=== PATIENT | female | born 1970 | race Caucasian/White ===

== ENCOUNTER 2016-10-19 15:00 | Outpatient (RCR) | payer BC ==
[~2016-10-19 15:00] MED LIST: ALORA0.1 MG/24; ANTIVERT 25MG25 MG PO; PHENERGAN 25 TA25 MG PO; VALIUM 5MG T5 MG/TAB PO; ZOFRAN ODT4 MG PO
== END 2016-12-14 ==
LOC: WSOT
DX: M20.012 Mallet finger of left finger(s) (principal)

== ENCOUNTER → 2017-05-10 | Outpatient (CLI) | payer BC | LOC: COL.RAD 13:42 | DX: R07.1 Chest pain on breathing (principal) | CPT/HCPCS: Q9967 ==

== ENCOUNTER → 2017-05-21 | Outpatient (CLI) | payer BC | LOC: MC.RAD 05-13 14:20 | DX: Z12.31 Encounter for screening mammogram for malignant neoplasm of breast (principal) ==

== ENCOUNTER → 2018-08-18 | Outpatient (CLI) | payer BC | LOC: MC.RAD 15:14 | DX: Z12.31 Encounter for screening mammogram for malignant neoplasm of breast (principal) ==

== ENCOUNTER → 2019-08-28 | Outpatient (CLI) | payer BC | LOC: MC.RAD 13:13 | DX: Z12.31 Encounter for screening mammogram for malignant neoplasm of breast (principal) ==

== ENCOUNTER → 2019-09-13 | Outpatient (CLI) | payer BC | LOC: COL.CARD 13:34 | DX: I49.3 Ventricular premature depolarization (principal) ==

== ENCOUNTER → 2019-10-06 | Outpatient (CLI) | payer BC ==
[~2019-10-06] VITALS: Ht 167.7 cm; Wt 82.0 kg
[~2019-10-06] MED LIST changes: +TOPROL XL 50MG50 MG PO
[2019-10-06 10:54] VITALS: BP 132/84; PULSE 55
== END ==
LOC: COL.CARD 10:31
DX: I49.3 Ventricular premature depolarization (principal)
CPT/HCPCS: A9500

== ENCOUNTER 2019-11-06 08:04 | Inpatient (IN) | payer BC ==
[~2019-11-06] VITALS: Ht 170.2 cm; Wt 79.3 kg
[2019-11-08 08:58] VITALS: BP 124/73; PULSE 48; TEMP 98.1
[2019-11-08 09:37] LABS: ALBUMIN 4.2 gm/dL (3.5-5.0); BILIRUBIN,TOTAL 0.7 mg/dL (0.0-1.0); CALCIUM 9.5 mg/dL (8.4-10.2); CREATININE, serum 0.96 (0.52-1.25); MAGNESIUM 2.2 mg/dL (1.6-2.3); POTASSIUM 4.5 mmol/L (3.4-5.0); TOTAL PROTEIN 7.1 gm/dL (6.4-8.2)
[2019-11-08 09:45] LABS: BASO # 0.1 (0.0-0.2); BASO % 1.3 % (0.0-2.0); EOS # 0.3 (0.0-0.7); EOS % 5.6 % (0-4.0); GRAN # 2.5 (1.4-6.5); GRAN % 52.3 % (42.2-75.2); HEMATOCRIT 37.8 % (37.0-47.0); HEMOGLOBIN 12.5 g/dl (12.5-16.0); LYMPH # 1.6 (1.2-3.4); LYMPH % 32.3 % (20.0-51.0); MEAN CELL VOLUME 88 fl (80.0-100.0); MEAN CORPUSCULAR HEMOGLOBIN 29 pg (27.0-31.0); MEAN CORPUSCULAR HGB CONC 33 g/dl (33.0-37.0); MONO # 0.4 (0.1-0.6); MONO % 8.1 % (1.7-9.3); PLATELET COUNT 203 K/mm3 (130-400); RED BLOOD COUNT 4.29 M/mm3 (4.10-5.30); REDCELL DISTRIBUTION WIDTH-CV 12.1 % (11.5-14.5)
[2019-11-08 09:50] LABS: INR 1.1 (0.8-3.0); PROTHROMBIN TIME 11.9 SECONDS (9.7-12.8)
[2019-11-08 11:48] VITALS: BP 131/79; PULSE 43; TEMP 984
--- NOTE | 2019-11-08 12:50 | NUR ---
RECEIVED CALL FROM TELEMETRY REGARDING HEART RATE BEING UPPER 30s TO LOW 40s. PAGED ETTA WITH DR. BURGOS FOR PARAMETERS. CALL PLACED AT 1212. RECEIVED RETURN CALL AT 1245.
[2019-11-08 15:56] VITALS: BP 105/59; PULSE 50; TEMP 98.2
--- NOTE | 2019-11-08 18:18 | NUR ---
PATIENT IS SITTING UP IN BED, NO NEEDS IDENTIFIED.
--- NOTE | 2019-11-08 19:20 | NUR ---
Received report from Becka. Seen patient awake, lying in bed. She just finished eating her dinner. Denies pain. She is alert, oriented and independent. With INT on left wrist.
[2019-11-08 19:24] VITALS: BP 108/71; PULSE 43; TEMP 98
[2019-11-08 23:19] VITALS: BP 107/71; PULSE 42; TEMP 97.7
[2019-11-09] VITALS (7 sets, daily range): BP systolic 99–128; BP diastolic 55–77; PULSE 40–48; TEMP 97.4–98.2
--- NOTE | 2019-11-09 01:20 | NUR ---
Tele nurse called that patient's heart rate is at 39bpm. SENIOR ACCOUNTING SPECIALIST checked on her blood pressure 99/65 and heart rate of 42. Upon checking on physician notification order, it says to notify if heart rate is 30 and below. Patient was asleep during the heart rate of 39. No complains of pain. Will continue to monitor.
[2019-11-09 06:34] LABS: BASO # 0.1 (0.0-0.2); EOS # 0.2 (0.0-0.7); EOS % 4.4 % (0-4.0); GRAN # 2.5 (1.4-6.5); GRAN % 50.7 % (42.2-75.2); HEMATOCRIT 39.1 % (37.0-47.0); HEMOGLOBIN 12.8 g/dl (12.5-16.0); LYMPH # 1.8 (1.2-3.4); LYMPH % 36.5 % (20.0-51.0); MEAN CELL VOLUME 88 fl (80.0-100.0); MEAN CORPUSCULAR HEMOGLOBIN 29 pg (27.0-31.0); MEAN CORPUSCULAR HGB CONC 33 g/dl (33.0-37.0); MEAN PLATELET VOLUME 10.8 fl (7.4-10.4); MONO # 0.4 (0.1-0.6); MONO % 7.2 % (1.7-9.3); PLATELET COUNT 210 K/mm3 (130-400); RED BLOOD COUNT 4.45 M/mm3 (4.10-5.30)
[2019-11-09 06:48] LABS: CALCIUM 9.4 mg/dL (8.4-10.2); CREATININE, serum 0.9 (0.52-1.25); MAGNESIUM 2.3 mg/dL (1.6-2.3); POTASSIUM 4.8 mmol/L (3.4-5.0)
--- NOTE | 2019-11-09 07:11 | NUR ---
Patient had uneventful night. Denies any pain. Will endorse to day fit nurse.
--- NOTE | 2019-11-09 11:33 | NUR ---
PATIENT IS AWAKE AND ALERT IN ROOM, DENIES PAIN. STATED SHE DID NOT FEEL THE ABNORMAL HEART BEATS LIKE SHE HAD PRIOR TO STARTING THE SOTALOL. NO NEEDS IDENTIFIED. IS INDEPENDENT IN THE ROOM.
--- NOTE | 2019-11-09 11:43 | NUR ---
BOAZ met with the patient to discuss discharge plan. The patient lives in [place] with her , Mundo (ph#[phone]), and youngest son. She reports independence with ADLs and does not have any DME. The patient's PCP is Dr. Lorna Kaiser and she receives her medications at [facility]. She reports no difficulties obtaining her meds. The patient does not have advanced directives completed, but she was interested in obtaining a form for DPOA-HC. BOAZ provided. The patient plans to return home with her family upon discharge. No additional needs at this time.
--- NOTE | 2019-11-09 12:47 | NUR ---
First visit from the engineer design and construction. No needs right now.
--- NOTE | 2019-11-09 18:23 | NUR ---
PATIENT IS SITTING UP IN BED, HAS EVENING MEAL. DENIES ANY NEEDS.
[2019-11-10 03:34] VITALS: BP 108/65; PULSE 46; TEMP 97.4
--- NOTE | 2019-11-10 05:07 | NUR ---
PATIENT HAS SLEPT THROUGH THE NIGHT WITH NO COMPLAINTS. PATIENT WATCHED SOME [employer] SERIES ON HER PHONE BEFORE WATCHING THE TV. PATIENT HAS SLEPT THROUGH THE NIGHT WITH NO COMPLAINTS OF PALPITATIONS. WILL CONTINUE TO MONITOR HER. WILL REPORT OFF TO DAY SHIFT.
--- NOTE | 2019-11-10 07:00 | NUR ---
Bedside shift report received from KHLOE Han. PT in bed resting, denies needs, will continue to monitor.
[2019-11-10 07:06] LABS: BASO # 0.1 (0.0-0.2); BASO % 0.9 % (0.0-2.0); EOS # 0.2 (0.0-0.7); EOS % 4.4 % (0-4.0); GRAN # 3.2 (1.4-6.5); HEMATOCRIT 41.2 % (37.0-47.0); HEMOGLOBIN 13.6 g/dl (12.5-16.0); LYMPH # 1.6 (1.2-3.4); LYMPH % 28.6 % (20.0-51.0); MEAN CELL VOLUME 88 fl (80.0-100.0); MEAN CORPUSCULAR HEMOGLOBIN 29 pg (27.0-31.0); MEAN CORPUSCULAR HGB CONC 33 g/dl (33.0-37.0); MEAN PLATELET VOLUME 10.7 fl (7.4-10.4); MONO # 0.4 (0.1-0.6); MONO % 6.9 % (1.7-9.3); PLATELET COUNT 219 K/mm3 (130-400); RED BLOOD COUNT 4.71 M/mm3 (4.10-5.30); REDCELL DISTRIBUTION WIDTH-CV 11.9 % (11.5-14.5)
[2019-11-10 07:15] LABS: CALCIUM 9.6 mg/dL (8.4-10.2); CREATININE, serum 0.88 (0.52-1.25); MAGNESIUM 2.2 mg/dL (1.6-2.3); POTASSIUM 4.5 mmol/L (3.4-5.0)
[2019-11-10 07:20] VITALS: BP 119/78; PULSE 51; TEMP 97.7
--- NOTE | 2019-11-10 09:54 | NUR ---
Assessment charted. Pt has sore neck from wearing tele monitor around neck, disucssed options to remove from neck, wear like a purse when up and keep off in bed when not up an around. Warm pack provided for neck. Disucssed ablility to walk halls today if desired. INT to LW. Will continue to monitor.
[2019-11-10 11:03] VITALS: BP 114/70; PULSE 72; TEMP 97.7
[2019-11-10] MEDS ORDERED: BETAPACE 80MG80 MG PO (11:26)
--- NOTE | 2019-11-10 12:00 | NUR ---
DIscharge teaching completed at this time. INT dc'd, tip intact. Reviewed packet, f/u appt, script. Pt left with all belongings, escorted out by myself, to drive home, criteria met.
== END 2019-11-10 12:00 | disposition home or self-care (01) | DRG 310 ==
LOC: MEDICAL 11-08 08:03
PROVIDERS: ADMIT Internal Medicine Cardiovascular Disease
DX: I47.1 Supraventricular tachycardia (principal); I49.3 Ventricular premature depolarization

== ENCOUNTER → 2020-09-05 | Outpatient (CLI) | payer BC ==
[~2020-09-05] MED LIST changes: +BETAPACE 80MG80 MG PO
== END ==
LOC: MC.RAD 16:33
DX: Z12.31 Encounter for screening mammogram for malignant neoplasm of breast (principal); Z97.8 Presence of other specified devices

== ENCOUNTER 2021-08-22 06:14 | Day surgery (SDC) | payer BC ==
[~2021-08-22] VITALS: Ht 170.2 cm; Wt 84.0 kg
[2021-08-22 07:55] VITALS: BP 121/88; PULSE 59; TEMP 97
--- NOTE | 2021-08-22 07:55 | NUR ---
Pt arrived from procedure and was settled by Balbina LEDBETTER. Verbal report then obtained. Pt requested crackers and applejuice to drink. Call wild is within reach on side table. Visitor is present. Pt denies nausea.
[2021-08-22 08:10] VITALS: BP 122/58; PULSE 63
--- NOTE | 2021-08-22 08:10 | NUR ---
Vitals obtained. Pt has finished her crackers and continues to deny nausea. Pt expressed desire to be discharged. Call wild remains within reach.
[2021-08-22 08:25] VITALS: BP 113/76; BP 120/96; PULSE 59; PULSE 67
--- NOTE | 2021-08-22 08:25 | NUR ---
Vitals obtained. Andrew romo.
--- NOTE | 2021-08-22 08:35 | NUR ---
Dc instructions and educational material reviewed with the pt and his visitor, both verbalized understanding and the pt signed the related paperwork. Pt denied having questions or concerns. Pt denied needing assistance changing. IV discontinued. Catheter tip intact. Pressure bandage applied. No redness or swelling noted. Call wild remains within reach if needed.
--- NOTE | 2021-08-22 09:05 | NUR ---
Pt dismissed from endo via wheelchair to the pt entrence by Sarahi LEDBETTER. Pt has DC packet and persoanl belongings. Pt was transferred into the care of her , who is present to drive.
[2021-08-22 12:23] VITALS: BP 135/84; PULSE 69; TEMP 98
== END 2021-08-22 09:05 | disposition home or self-care (01) ==
LOC: SDCO 06:14
DX: K22.2 Esophageal obstruction (principal); R93.89 Abnormal findings on diagnostic imaging of other specified body structures; R13.10 Dysphagia, unspecified; K29.70 Gastritis, unspecified, without bleeding
CPT/HCPCS: J0330; J2704; J7120

== ENCOUNTER → 2021-09-18 | Outpatient (CLI) | payer BC | LOC: MC.RAD 13:22 | DX: Z12.31 Encounter for screening mammogram for malignant neoplasm of breast (principal) ==

== ENCOUNTER → 2023-01-05 | Outpatient (CLI) | payer BC | LOC: COL.RAD 11:57 | DX: M54.14 Radiculopathy, thoracic region (principal) ==

== ENCOUNTER → 2023-07-22 | Outpatient (CLI) | payer BC ==
[~2023-07-22] MED LIST changes: +Albuterol 0.083% Neb Soln 2.5 MG/3 ML UD IH ONE; +Iohexol 300 - 100 ML VIAL IV ONE; +NS 100 ML IV SCH
== END ==
LOC: COL.RAD 13:45
DX: R91.8 Other nonspecific abnormal finding of lung field (principal)
CPT/HCPCS: Q9967

== ENCOUNTER → 2023-08-05 | Outpatient (CLI) | payer BC ==
[~2023-08-05] MED LIST changes: -Albuterol 0.083% Neb Soln 2.5 MG/3 ML UD IH ONE; -Iohexol 300 - 100 ML VIAL IV ONE; -NS 100 ML IV SCH
== END ==
LOC: MC.RAD 15:49
DX: Z12.31 Encounter for screening mammogram for malignant neoplasm of breast (principal)